=== PATIENT | female | born 1985 | race Caucasian/White ===

== ENCOUNTER 2018-05-03 18:42 | Emergency (ER) | payer OTHER ==
[2018-05-03] MEDS ORDERED: ASPIRIN 81 MG TABLET, CHEWABLE PO ONE (20:18)
--- NOTE | 2018-05-03 20:41 | ER Document Report ---
ED Medical Screen (RME) - General Chief Complaint: Chest Pain Stated Complaint: CHEST PAIN Time Seen by Provider: 05/03/18 20:37 Mode of Arrival: Ambulatory Information source: Patient Notes: Patient is a 32-year-old female presenting with chief complaint of chest pain that started at 130 this afternoon. Patient reports that it is a sharp stabbing pain behind her left breast has associated nausea with vomiting. Patient reports the pain is worse with deep breaths. Patient reports she is a daily smoker, denies any drug use. Denies any cardiac history. Exam: Lung sounds clear to auscultation bilaterally. Pain increased with palpation to left chest wall. I have greeted and performed a rapid initial assessment of this patient. A comprehensive ED assessment and evaluation of the patient, analysis of test results and completion of the medical decision making process will be conducted by additional ED providers. Dictation of this chart was performed using voice recognition software; therefore, there may be some unintended grammatical errors. Physical Exam - Vital signs Vitals: Temp Pulse Resp BP Pulse Ox 98.7 F 92 17 125/111 H 100 05/03/18 18:56 05/03/18 18:56 05/03/18 18:56 05/03/18 18:56 05/03/18 18:56 Course - Vital Signs Vital signs: Temp Pulse Resp BP Pulse Ox 98.7 F 92 17 125/111 H 100 05/03/18 18:56 05/03/18 18:56 05/03/18 18:56 05/03/18 18:56 05/03/18 18:56
--- NOTE | 2018-05-03 20:50 | ER Document Report ---
Doctor's Note Notes: 05/03/18 20:[address] level 2 after patient reports increased pain and is hyperventilating, patient continues to state "something is very wrong with me". Charge nurse Jacqueline Bales RN made aware.
[2018-05-03 21:29] LABS: ABSOLUTE BASOPHILS # (AUTO) 0.1 10^3/uL (0.0-0.2); ABSOLUTE EOSINOPHILS # (AUTO) 0.1 10^3/uL (0.0-0.6); ABSOLUTE LYMPHOCYTES (AUTO) 1.7 10^3/uL (0.5-4.7); ABSOLUTE MONOCYTES (AUTO) 0.9 10^3/uL (0.1-1.4); ABSOLUTE NEUT (AUTO) 14.1 10^3/uL (1.7-8.2); BASOPHILS % (AUTO) 0.8 % (0-2); EOSINOPHILS % (AUTO) 0.6 % (0-6); HEMATOCRIT 38.3 % (36.0-47.0); HEMOGLOBIN 13.1 g/dL (12.0-15.5); LYMPHOCYTES % (AUTO) 10.2 % (13-45); MEAN CORPUSCULAR HEMOGLOBIN 30.8 pg (27.0-33.4); MEAN CORPUSCULAR HGB CONC 34.3 g/dL (32.0-36.0); MEAN CORPUSCULAR VOLUME 90 fl (80-97); MONOCYTES % (AUTO) 5.3 % (3-13); PLATELET COUNT 324 10^3/uL (150-450); RED BLOOD COUNT 4.25 10^6/uL (3.72-5.28); RED CELL DISTRIBUTION WIDTH 12.8 % (11.5-14.0); SEGMENTED NEUTROPHILS % (AUTO) 83.1 % (42-78); TOTAL CELLS COUNTED % (AUTO) 100 %; WHITE BLOOD COUNT 16.9 10^3/uL (4.0-10.5)
--- NOTE | 2018-05-03 21:37 | RADIOLOGY REPORT (SQ) ---
EXAM DESCRIPTION: XR CHEST 1 VIEW COMPLETED DATE/TME: 05/03/2018 20:18 CLINICAL HISTORY: 32 years, Female, chest pain COMPARISON: EXAM DESCRIPTION: CLINICAL HISTORY: chest pain COMPARISON: None. FINDINGS: Single view of the chest is submitted. Cardiac silhouette is normal. No focal parenchymal or pleural disease. No acute bony abnormality. There is no significant pulmonary vascular engorgement. IMPRESSION: No evidence of acute cardiopulmonary disease. NUMBER OF VIEWS: TECHNIQUE: LIMITATIONS: None. FINDINGS: IMPRESSION: 2010 [facility], [place] [employer]- All Rights Reserved
[2018-05-03 21:44] LABS: ALANINE AMINOTRANSFERASE 18 U/L (9-52); ALBUMIN 4.2 g/dL (3.5-5.0); ALKALINE PHOSPHATASE 72 U/L (38-126); ANION GAP 13 (5-19); ASPARTATE AMINO TRANSFERASE 21 U/L (14-36); BILIRUBIN,DIRECT 0.2 mg/dL (0.0-0.4); BILIRUBIN,TOTAL 0.4 mg/dL (0.2-1.3); BLOOD UREA NITROGEN 8 mg/dL (7-20); CALCIUM 9.5 mg/dL (8.4-10.2); CARBON DIOXIDE 23 mmol/L (22-30); CHLORIDE 102 mmol/L (98-107); CREATINE KINASE 56 U/L (30-135); GLUCOSE 106 mg/dL (75-110); POTASSIUM 4.4 mmol/L (3.6-5.0); SODIUM 137.7 mmol/L (137-145); TOTAL PROTEIN 7.6 g/dL (6.3-8.2)
[2018-05-03 21:56] LABS: CREATINE KINASE MB 0.33 ng/mL (<4.55)
[2018-05-03 21:58] LABS: TROPONIN I < 0.012 ng/mL
--- NOTE | 2018-05-03 22:05 | ER Document Report ---
ED General - General Chief Complaint: Chest Pain Stated Complaint: CHEST PAIN Time Seen by Provider: 05/03/18 20:37 Mode of Arrival: Ambulatory Notes: Patient is a 32-year-old female presents with complaint of pleuritic chest pain the left side of her chest that started while she was getting her nails done. No history of PE but she does smoke and does have an Implanon control in place. No fevers. No vomiting. Never had anything like this before. No recent illnesses. No recent upper respiratory type infection symptoms no recent viral symptoms. Pain is much worse with any type of deep breath. Movement does not really seem to affect the pain. Past Medical History - General Information source: Patient - Social History Smoking Status: Current Every Day Smoker Frequency of alcohol use: None Drug Abuse: None Family History: Reviewed & Not Pertinent Patient has suicidal ideation: No Patient has homicidal ideation: No Renal/ Medical History: Denies: Hx Peritoneal Dialysis Review of Systems - Review of Systems Notes: My Normal Review Basic REVIEW OF SYSTEMS: CONSTITUTIONAL : Denies fever, chills, or sweats. Denies recent illness. EENT: Denies eye, ear, throat, or mouth pain or symptoms. Denies nasal or sinus congestion. CARDIOVASCULAR: Left-sided pleuritic chest pain RESPIRATORY: Denies cough, cold, or chest congestion. Denies shortness of breath, difficulty breathing, or wheezing. GASTROINTESTINAL: Denies abdominal pain. Denies nausea, vomiting, or diarrhea. MUSCULOSKELETAL: Denies neck or back pain or joint pain or swelling. SKIN: Denies rash or skin lesions. NEUROLOGICAL: Denies altered mental status or loss of consciousness. Denies headache. Denies weakness or paralysis or loss of use of either side. Denies problems with gait or speech. Denies sensory or motor loss. ALL OTHER SYSTEMS REVIEWED AND NEGATIVE. Physical Exam - Vital signs Vitals: Temp Pulse Resp BP Pulse Ox 98.7 F 92 17 125/111 H 100 05/03/18 18:56 05/03/18 18:56 05/03/18 18:56 05/03/18 18:56 05/03/18 18:56 - Notes Notes: General Appearance: Well nourished, alert, cooperative, no acute distress, moderate obvious discomfort. Vitals: reviewed, See vital signs table. Head: no swelling or tenderness to the head Eyes: PERRL, EOMI, Conjuctiva clear Mouth: No decreasd moisture Throat: No tonsillar inflammation, No airway obstruction, No lymphadenopathy Chest wall: No reproducible tenderness to the chest wall. Neck: Supple, no neck tenderness, No thyromegaly Lungs: No wheezing, No rales, No rhonci, No accessory muscle use, good air exchange bilaterally. Heart: Normal rate, Regular rythm, No murmur, no rub Abdomen: Normal BS, soft, No rigidity, No abdominal tenderness, No guarding, no rebound, no abdominal masses, no organomegaly Extremities: strength 5/5 in all extremities, good pulses in all extremities, no swelling or tenderness in the extremities, no edema. Skin: warm, dry, appropriate color, no shingles-like rash Neuro: speech clear, oriented x 3, normal affect, responds appropriately to questions. Course - Re-evaluation Re-evalutation: 05/04/18 00:31 Patient CTA was negative. I obtain a CTA but she is on control in the smoking L is also overweight and therefore she has multiple risk factors for PE. This in conjunction with her pleuritic Onset Chest Pain May Be Concern for Possibility of PE and Therefore We Will Forward CTA. CT Is Negative. I Suspect Patient Most Likely has Pleurisy. Is Worse with Taking a Deep Breath or Coughing. I Feel She Is Safe to Be Discharged Home. I Do Not Suspect Suspect Coronary Disease. Will Place Her on Toradol. I do not suspect pericarditis is the patient's pain is more of a pleuritic type pain and patient has not had any recent viral type illness or infectious type symptoms prior to this. Also no effusion on CT scan. I Encouraged Her Return to ER If She Has Worsening Pain, Coughing of Blood, Fevers, or She Feels Unwell. Patient Agrees with Plan Will Be Discharged Home. Dictation of this chart was performed using voice recognition software; therefore, there may be some unintended grammatical errors. 05/04/18 00:32 - Vital Signs Vital signs: Temp Pulse Resp BP Pulse Ox 98.7 F 92 19 125/111 H 97 05/03/18 18:56 05/03/18 18:56 05/03/18 23:00 05/03/18 18:56 05/03/18 23:00 - Laboratory Result Diagrams: 05/03/18 21:19 05/03/18 21:19 Laboratory results interpreted by me: 05/03/18 21:19 WBC 16.9 H Seg Neutrophils % 83.1 H Lymphocytes % 10.2 L Absolute Neutrophils 14.1 H - EKG Interpretation by Me Additional EKG results interpreted by me: 05/03/18 22:03 EKG is reviewed and interpreted by me. EKG shows sinus rhythm with a rate of [address] segment elevation or depression. No ischemic T wave inversions. AL interval, QRS duration, QTc intervals are within normal range. No old EKG available for comparison. Discharge - Discharge Clinical Impression: Chest pain Qualifiers: Chest pain type: unspecified Qualified Code(s): R07.9 - Chest pain, unspecified Condition: Good Disposition: HOME, SELF-CARE Additional Instructions: Please take the Toradol as prescribed starting tomorrow. Do not take other NSAID medicaitons such as Aspirin, Motrin, Ibuprofen, Aleve, or Advil when taking this medication. It is okay to take Tylenol. Please follow-up with your doctor in 2-3 days for reevaluation. Please return to ER immediately if you have worsening pain, coughing up blood, fevers, or feel that you are worsening any way. Your CT scan today did not show any evidence of a blood clot in your lungs. Workup looking at your heart did not show any evidence of damage to your heart. Referrals: MELANY GONZALEZ PA-C [Primary Care Provider] - 05/06/18
[2018-05-03] MEDS ORDERED: NORMAL SALINE 1000 ML 1,000 ML IV ONE (22:37)
[2018-05-03] MEDS ORDERED: FENTANYL CITRATE INJ/PF 100 MCG/2 ML AMPUL IV ONE (22:38)
--- NOTE | 2018-05-03 23:21 | EKG REPORT ---
SEVERITY:- NORMAL ECG - SINUS RHYTHM : Confirmed by: Jagjit Cisse 03-May-2018 23:20:22
--- NOTE | 2018-05-03 23:51 | RADIOLOGY REPORT (SQ) ---
EXAM DESCRIPTION: CT CHEST ANGIOGRAPHY WITHOUT THEN WITH IV CONTRAST COMPLETED DATE/TME: 05/03/2018 22:37 CLINICAL HISTORY: 32 years Female, pleuritic chest pain Comparison: None. Technique: IV contrast. Coronal and sagittal reformat. 3d reconstruction. This exam was performed according to our departmental dose-optimization program, which includes automated exposure control, adjustment of the mA and/or kV according to patient size and/or use of iterative reconstruction technique.[facility]: Dose Right [facility]: CareDose [facility]: Dose Right [facility]: Teradose 4D [facility]: Smart [facility] [employer] LIMITATIONS: Quality of pulmonary arteriogram: Suboptimal. Findings: Right lower lobar micronodule (less than 3 mm) likely benign, no routine follow-up recommended. No pulmonary embolus. No right ventricular strain. Atelectasis/scar. Inferior neck, axillae, mediastinum, airway, lymphatics, heart, vasculature, upper abdomen, and musculoskeleton appear otherwise unremarkable. Impression: No pulmonary embolus. No acute cardiopulmonary findings.
[2018-05-04] MEDS ORDERED: HYDROCODONE/ACETAMINOPHEN 5-325 MG (6 TAB/ER DISP) PO PRN (00:37)
[2018-05-04 00:52] VITALS: BP 128/75
== END 2018-05-04 00:53 | disposition home or self-care (01) ==
LOC: ER 18:42
DX: R07.9 Chest pain, unspecified (principal); F17.200 Nicotine dependence, unspecified, uncomplicated; Z79.3 Long term (current) use of hormonal contraceptives
CPT/HCPCS: 93005; 99285; 96361; 96374; 36415; 82553; 82550; 85025; 80053; 84484; 71045; 71275; 93010; J3010; J7030

== ENCOUNTER 2018-12-07 20:07 | Emergency (ER) | payer OTHER ==
[2018-12-07 20:26] VITALS: BP 145/86
--- NOTE | 2018-12-07 23:42 | ER Document Report ---
ED Medical Screen (RME) - General Chief Complaint: Abdominal Pain Stated Complaint: BACK PAIN Time Seen by Provider: 12/07/18 23:39 Primary Care Provider: MELANY GONZALEZ PA-C [Primary Care Provider] - Follow up as needed Notes: 33-year-old female with remote history of brain surgery who is otherwise healthy presents to the emergency department with chief complaint of epigastric abdominal pain that started Thursday and is gotten progressively worse. She said that today the pain was severe enough to prompt her to seek treatment. States the pain is epigastric and radiates bilaterally around to her back, is cramping/squeezing in nature, and nothing relieves it. She is tried Tylenol and Midol with no help. Denies fevers, chills, nausea or vomiting, urinary symptoms, abnormal vaginal discharge. EXAM: Generally well-appearing and nontoxic, lungs clear to auscultation in all latif, regular cardiac rate and rhythm no murmurs, no CVAT bilateral I have greeted and performed a rapid initial assessment of this patient. A comprehensive ED assessment and evaluation of the patient, analysis of test results and completion of medical decision making process will be conducted by an additional ED providers. TRAVEL OUTSIDE OF THE [place] IN LAST 30 DAYS: No Past Medical History Renal/ Medical History: Denies: Hx Peritoneal Dialysis Physical Exam - Vital signs Vitals: Temp Pulse Resp BP Pulse Ox 98.5 F 82 18 145/86 H 99 12/07/18 20:24 12/07/18 20:24 12/07/18 20:24 12/07/18 20:24 12/07/18 20:24 Course - Vital Signs Vital signs: Temp Pulse Resp BP Pulse Ox 98.5 F 82 18 145/86 H 99 12/07/18 20:24 12/07/18 20:24 12/07/18 20:24 12/07/18 20:24 12/07/18 20:24 Doctor's Discharge - Discharge Referrals: MELANY GONZALEZ PA-C [Primary Care Provider] - Follow up as needed
[2018-12-08 00:10] LABS: ABSOLUTE EOSINOPHILS # (AUTO) 0.4 10^3/uL (0.0-0.6); ABSOLUTE LYMPHOCYTES (AUTO) 2.4 10^3/uL (0.5-4.7); ABSOLUTE MONOCYTES (AUTO) 0.5 10^3/uL (0.1-1.4); ABSOLUTE NEUT (AUTO) 5.9 10^3/uL (1.7-8.2); BASOPHILS % (AUTO) 0.4 % (0-2); EOSINOPHILS % (AUTO) 4.4 % (0-6); HEMOGLOBIN 13.9 g/dL (12.0-15.5); MEAN CORPUSCULAR HEMOGLOBIN 29.6 pg (27.0-33.4); MEAN CORPUSCULAR HGB CONC 33.9 g/dL (32.0-36.0); MEAN CORPUSCULAR VOLUME 87 fl (80-97); MONOCYTES % (AUTO) 5.6 % (3-13); PLATELET COUNT 396 10^3/uL (150-450); RED BLOOD COUNT 4.71 10^6/uL (3.72-5.28); RED CELL DISTRIBUTION WIDTH 13.7 % (11.5-14.0); SEGMENTED NEUTROPHILS % (AUTO) 63.6 % (42-78); TOTAL CELLS COUNTED % (AUTO) 100 %; WHITE BLOOD COUNT 9.3 10^3/uL (4.0-10.5)
[2018-12-08 00:26] LABS: ALANINE AMINOTRANSFERASE 29 U/L (9-52); ALBUMIN 4.4 g/dL (3.5-5.0); ALKALINE PHOSPHATASE 83 U/L (38-126); ANION GAP 11 (5-19); ASPARTATE AMINO TRANSFERASE 36 U/L (14-36); BILIRUBIN,DIRECT 0.2 mg/dL (0.0-0.4); BILIRUBIN,TOTAL 0.2 mg/dL (0.2-1.3); BLOOD UREA NITROGEN 9 mg/dL (7-20); CALCIUM 9.6 mg/dL (8.4-10.2); CARBON DIOXIDE 24 mmol/L (22-30); CHLORIDE 105 mmol/L (98-107); GLUCOSE 134 mg/dL (75-110); LIPASE 79.1 U/L (23-300); POTASSIUM 4.1 mmol/L (3.6-5.0); SODIUM 140.4 mmol/L (137-145); TOTAL PROTEIN 7.7 g/dL (6.3-8.2)
[2018-12-08] MEDS ORDERED: KETOROLAC TROMETHAMINE INJ/PF 30 MG/1 ML SDV IV ONE (01:54)
[2018-12-08] MEDS ORDERED: ONDANSETRON HCL INJ/PF 4 MG/2 ML SDV IV ONE (01:54)
--- NOTE | 2018-12-08 01:57 | ER Document Report ---
ED General - General Chief Complaint: Abdominal Pain Stated Complaint: BACK PAIN Time Seen by Provider: 12/07/18 23:39 Primary Care Provider: MELANY GONZALEZ PA-C [Primary Care Provider] - Follow up as needed TRAVEL OUTSIDE OF THE [place] IN LAST 30 DAYS: No - HPI Notes: Patient is a 33-year-old female that presents to the emergency department for chief complaint of abdominal pain. Patient reports diffuse crampy abdominal pain that started yesterday. She states the pain is intermittent. She denies aggravating or relieving factors. She describes it as mostly epigastric that radiates around her entire abdomen and down into her lower lumbar spine. She denies any pain with movement or ambulating. She denies any associated fevers or chills. She has been nauseated with no vomiting. She reports a few episodes of loose stools today with no blood in her stool. Her developed similar symptoms this evening. She denies recent antibiotic use as well as new foods. Patient started her menstrual cycle yesterday which was normal timing for her. She denies any concern for today. She did take Midol earlier this afternoon with some relief. Patient does state that she was drinking alcohol yesterday for the holiday and had 4 or 5 drinks. Past Medical History: Chiari malformation Past Surgical History: Brain surgery for the Chiari malformation unspecified Social History: Daily tobacco. Occasional alcohol. Denies drug use. Family History: Reviewed and noncontributory for presenting illness Allergies: Reviewed, see documented allergy list. REVIEW OF SYSTEMS: CONSTITUTIONAL : No fever No chills No diaphoresis No recent illness EENT: No vision changes No congestion No sore throat CARDIOVASCULAR: No chest pain No palpitations RESPIRATORY: No shortness of breath No cough No difficulty breathing GASTROINTESTINAL: abdominal pain nausea No vomiting diarrhea GENITOURINARY: No dysuria No hematuria No difficulty urinating MUSCULOSKELETAL: No back pain No leg pain No arm pain SKIN: No rashes No lesions LYMPHATIC: No swollen, enlarged glands. NEUROLOGICAL: No lightheadedness No headache No weakness No paresthesias PSYCHIATRIC: No anxiety No depression PHYSICAL EXAMINATION: Vital signs reviewed, nursing noted reviewed. GENERAL: Well-appearing, well-nourished and in no acute distress. HEAD: Atraumatic, normocephalic. EYES: Eyes appear normal, extraocular movements intact, sclera anicteric, conjunctiva are normal. ENT: nares patent, oropharynx clear without exudates. Moist mucous membranes. NECK: Normal range of motion, supple without lymphadenopathy LUNGS: Breath sounds clear to auscultation bilaterally and equal. No wheezes rales or rhonchi. HEART: Regular rate and rhythm without murmurs ABDOMEN: Soft, nontender, normoactive bowel sounds. No rebound, guarding, or rigidity. No masses appreciated. EXTREMITIES: Nontender, good range of motion, no pitting or edema. NEUROLOGICAL: No focal neurological deficits. Moves all extremities spontaneously Motor and sensory grossly intact on exam. PSYCH: Normal mood, normal affect. SKIN: Warm, Dry, normal turgor, no rashes or lesions noted on exposed skin - Related Data Allergies/Adverse Reactions: No Known Allergies Allergy (Verified 12/08/18 02:10) Past Medical History - Social History Smoking Status: Never Smoker Family History: Reviewed & Not Pertinent Renal/ Medical History: Denies: Hx Peritoneal Dialysis Physical Exam - Vital signs Vitals: Temp Pulse Resp BP Pulse Ox 98.5 F 82 18 145/86 H 99 12/07/18 20:24 12/07/18 20:24 12/07/18 20:24 12/07/18 20:24 12/07/18 20:24 Course - Re-evaluation Re-evalutation: 12/08/18 01:57 Vitals reviewed. Nursing notes reviewed. Patient is well-appearing and has moist mucous membranes. She is not actively vomiting. Her abdominal exam is soft with no focal tenderness to necessitate imaging. She was given Zofran and Toradol for symptom medic management. Lab work is unremarkable. She has no electrolyte derangements or renal insufficiency. Her lipase is normal. Urinalysis currently pending. Laboratory 12/07/18 12/07/18 23:55 23:55 WBC 9.3 RBC 4.71 Hgb 13.9 Hct 41.0 MCV 87 MCH 29.6 MCHC 33.9 RDW 13.7 Plt Count 396 Seg Neutrophils % 63.6 Lymphocytes % 26.0 Monocytes % 5.6 Eosinophils % 4.4 Basophils % 0.4 Absolute Neutrophils 5.9 Absolute Lymphocytes 2.4 Absolute Monocytes 0.5 Absolute Eosinophils 0.4 Absolute Basophils 0.0 Sodium 140.4 Potassium 4.1 Chloride 105 Carbon Dioxide 24 Anion Gap 11 BUN 9 Creatinine 0.62 Est GFR ( Amer) > 60 Est GFR (Non-Af Amer) > 60 Glucose 134 H Calcium 9.6 Total Bilirubin 0.2 Direct Bilirubin 0.2 Neonat Total Bilirubin Not Reportable Neonat Direct Bilirubin Not Reportable Neonat Indirect Bili Not Reportable AST 36 ALT 29 Alkaline Phosphatase 83 Total Protein 7.7 Albumin 4.4 Lipase 79.1 12/08/18 03:06 Patient reevaluated. She did have symptomatic relief after the Toradol but states the pain has begun to return. Her abdominal exam is still soft with no focal tenderness. Patient's urinalysis shows blood which is consistent with her menstrual cycle, there is no acute urinary tract infection. She is otherwise hemodynamically stable and well-appearing. Symptoms may be related to dysmenorrhea or viral illness. She will be referred to gynecology for follow- up. She was encouraged to see her PCP in the next few days for close outpatient reevaluation as well. She was counseled on return precautions and verbalized understanding. She is stable at discharge. - Vital Signs Vital signs: Temp Pulse Resp BP Pulse Ox 98.5 F 82 18 145/86 H 99 12/07/18 20:24 12/07/18 20:24 12/07/18 20:24 12/07/18 20:24 12/07/18 20:24 - Laboratory Result Diagrams: 12/07/18 23:55 12/07/18 23:55 Laboratory results interpreted by me: 12/07/18 12/08/18 23:55 01:00 Glucose 134 H Urine Glucose (UA) 50 H Urine Blood LARGE H Discharge - Discharge Clinical Impression: Dysmenorrhea Abdominal pain Qualifiers: Abdominal location: generalized Qualified Code(s): R10.84 - Generalized abdominal pain Low back pain Qualifiers: Chronicity: acute Back pain laterality: bilateral Sciatica presence: without sciatica Qualified Code(s): M54.5 - Low back pain Condition: Stable Disposition: HOME, SELF-CARE Instructions: Abdominal Pain ([facility]), Dysmenorrhea ([facility]) Additional Instructions: Please return to the emergency department if you have any worsening, or concern of your symptoms. Please return to the emergency department if you develop chest pain, difficulty breathing, severe abdominal pain, or ongoing vomiting. Please follow-up with your primary care physician in 2-3 days and any other recommended physicians. If prescribed, take all medications as directed. If you have any questions or concerns do not hesitate to return the emergency department for evaluation. [] Prescriptions: Ondansetron [Zofran Odt 4 mg Tablet] 1 tab PO Q4H PRN #15 tab.rapdis PRN Reason: For Nausea/Vomiting Referrals: MELANY GONZALEZ PA-C [Primary Care Provider] - Follow up in 3-5 days [facility] [Provider Group] - Follow up in 3-5 days
[2018-12-08 02:47] LABS: APPEARANCE,URINE CLOUDY; BILIRUBIN,URINE NEGATIVE (NEGATIVE); COLOR,URINE RED; GLUCOSE, URINE 50 mg/dL (NEGATIVE); KETONES,URINE NEGATIVE (NEGATIVE); LEUKOCYTE ESTERASE,URINE NEGATIVE (NEGATIVE); NITRITE,URINE NEGATIVE (NEGATIVE); PROTEIN,URINE NEGATIVE (NEGATIVE); URINE SPECIFIC GRAVITY 1.005; UROBILINOGEN,URINE NEGATIVE mg/dL (<2.0)
[2018-12-08] MEDS ORDERED: OXYCODONE-ACETAMINOPHEN 5-325 MG TABLET PO ONE (03:06)
== END 2018-12-08 03:25 | disposition home or self-care (01) ==
LOC: ER 20:07
DX: N94.6 Dysmenorrhea, unspecified (principal); R10.84 Generalized abdominal pain; M54.5 Low back pain; R10.13 Epigastric pain; F17.210 Nicotine dependence, cigarettes, uncomplicated
CPT/HCPCS: 99284; 96374; 96375; 36415; 83690; 85025; 81025; 80053; 81001; J1885; J2405